=== PATIENT | male | born 2005 | race Caucasian/White ===

== ENCOUNTER 2023-09-15 10:49 | Emergency (ER) | payer OTHER ==
[2023-09-15 11:38] VITALS: BP 133/92; RESP 18; TEMP 99.2; BMI 26.5
[2023-09-15] MEDS ORDERED: ONDANSETRON 4 MG/2 ML VIAL ONE (12:50)
[2023-09-15 12:55] LABS: HEMATOCRIT 45.6 % (35.4-49); HEMOGLOBIN 15.8 GM/dL (11.7-16.9); MCHC 34.6 g/dl (32.0-35.9); MEAN CELL VOLUME 83.6 fl (80-96); MEAN PLT VOLUME 7.4 fl (7.5-11.1); PLATELET COUNT 478 10^3/uL (134-434); RBC 5.45 M/mm3 (4.00-5.60); RDW 12.9 % (11.9-15.9); WHITE BLOOD COUNT 11.9 K/mm3 (4.0-10.0)
[2023-09-15] MEDS: SODIUM CHLORIDE 0.9% 500 ML INFUS.BAG IV ONE ×2 (12:57→14:12)
[2023-09-15] MEDS: ONDANSETRON 4 MG/2 ML VIAL IVPB ONE (12:57)
[2023-09-15 13:15] LABS: POTASSIUM 4.3 mmol/L (3.5-5.1)
[2023-09-15 13:19] LABS: ALBUMIN 4.2 g/dl (3.4-5.0); BLOOD UREA NITROGEN 21.7 mg/dL (7-18); CALCIUM 10.2 mg/dL (8.5-10.1)
[2023-09-15 13:23] LABS: CREATININE 1.2 mg/dL (0.55-1.3)
[2023-09-15 13:24] LABS: BILIRUBIN,TOTAL 0.3 mg/dL (0.2-1)
[2023-09-15 13:28] LABS: TOT PROT 8.9 g/dl (6.4-8.2)
[2023-09-15] MEDS ORDERED: PANTOPRAZOLE SODIUM 40 MG/100 ML BAG IVPB ONE (13:47)
[2023-09-15] MEDS: PANTOPRAZOLE SODIUM 40 MG VIAL IVPUSH ONE (14:00)
[2023-09-15] MEDS: MAG HYDROX/ALH/SMC/DPHA/LIDO 240 ML MOUTHWASH MM ONE (14:26)
[2023-09-15 14:27] LABS: HEMATOCRIT 39.8 % (35.4-49); HEMOGLOBIN 13.7 GM/dL (11.7-16.9); MCH 28.9 pg (25.7-33.7); MCHC 34.5 g/dl (32.0-35.9); MEAN CELL VOLUME 83.7 fl (80-96); MEAN PLT VOLUME 7.6 fl (7.5-11.1); PLATELET COUNT 378 10^3/uL (134-434); RBC 4.76 M/mm3 (4.00-5.60); RDW 13.1 % (11.9-15.9); WHITE BLOOD COUNT 11.2 K/mm3 (4.0-10.0)
[2023-09-15 14:47] VITALS: PULSE 90
== END 2023-09-15 15:06 | disposition home or self-care (01) ==
LOC: JERFT 10:49 → JER 10:49 → JERFT 15:06
PROC: 3E033NZ Introduction of Analgesics, Hypnotics, Sedatives into Peripheral Vein, Percutaneous Approach (ICD-10-PCS; principal; 2023-09-15)
PROC: 3E033GC Introduction of Other Therapeutic Substance into Peripheral Vein, Percutaneous Approach (ICD-10-PCS; 2023-09-15)
DX: R05.9 Cough, unspecified (principal); R50.9 Fever, unspecified; J03.90 Acute tonsillitis, unspecified; R11.2 Nausea with vomiting, unspecified; B08.5 Enteroviral vesicular pharyngitis; Z20.822 Contact with and (suspected) exposure to COVID-19
CPT/HCPCS: 0241U-QW; 36415; 71046-TC-FY; 80053; 83690; 85027; 86308; 87651; 99284-25